=== PATIENT | female | born 1955 | race Caucasian/White ===

== ENCOUNTER → 2021-03-25 | Outpatient (CLI) | payer MEDICARE, OTHER ==
[~2021-03-25] MED LIST: ASP81CT PO; HCT25T PO; LVT.1T PO; MTF500T PO; POTA10CA43 PO; QNPR20T PO
== END ==
LOC: RAD 15:30
PROVIDERS: ATTEND Obstetrics & Gynecology
DX: Z12.31 Encounter for screening mammogram for malignant neoplasm of breast (principal)
CPT/HCPCS: 77063; 77067

== ENCOUNTER 2022-06-29 08:03 | Emergency (ER) | payer MEDICARE, OTHER ==
[~2022-06-29] VITALS: Ht 154.9 cm; Wt 87.9 kg
[2022-06-29 08:25] LABS: BASOPHILS # (AUTO) 0.1 10^3/uL (0.0-0.1); BASOPHILS % (AUTO) 1 % (0-10); EOSINOPHILS # (AUTO) 0.3 10^3/uL (0.0-0.3); EOSINOPHILS % (AUTO) 3 % (0-10); HEMATOCRIT 43 % (35-52); HEMOGLOBIN 14.7 g/dL (11.5-16.0); LYMPHOCYTES # (AUTO) 3.8 10^3/uL (1.0-4.0); LYMPHOCYTES % (AUTO) 40 % (12-44); MEAN CORPUSCULAR HEMOGLOBIN 29 pg (25-34); MEAN CORPUSCULAR HGB CONC 34 g/dL (32-36); MEAN CORPUSCULAR VOLUME 85 fL (80-99); MEAN PLATELET VOLUME 10.3 fL (9.0-12.2); MONOCYTES # (AUTO) 0.6 10^3/uL (0.0-1.0); MONOCYTES % (AUTO) 7 % (0-12); NEUTROPHILS # (AUTO) 4.8 10^3/uL (1.8-7.8); NEUTROPHILS % (AUTO) 49 % (42-75); PLATELET COUNT 243 10^3/uL (130-400); WHITE BLOOD COUNT 9.7 10^3/uL (4.3-11.0)
[2022-06-29 08:38] LABS: ALBUMIN 4.2 GM/DL (3.2-4.5); POTASSIUM 3.4 MMOL/L (3.6-5.0)
[2022-06-29 08:39] LABS: CALCIUM 9.7 MG/DL (8.5-10.1)
[2022-06-29 08:40] LABS: TOTAL PROTEIN 7.6 GM/DL (6.4-8.2)
[2022-06-29 08:42] LABS: BILIRUBIN,TOTAL 0.8 MG/DL (0.1-1.0); PROTHROMBIN TIME PATIENT 13.6 SEC (12.2-14.7)
[2022-06-29 08:44] LABS: CREATININE SERUM 0.76 MG/DL (0.60-1.30)
[2022-06-29 08:47] LABS: MAGNESIUM 1.9 MG/DL (1.6-2.4)
--- NOTE | 2022-06-29 09:08 | ED Cardiac General ---
History of Present Illness General Chief Complaint: Chest Pain Stated Complaint: UPPER BACK PAIN - DIZZY - NAUSEA Nursing Triage Note: arrives this am with a c/o dizziness, nausea, SOB and cold sweats that happened earlier this am around 0700. states she has a hx of mi and had no sx of it at the time it was happening. 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 denies any chest pain or pressure at this time. Source: patient Exam Limitations: no limitations (MARLENE WILKINS) History of Present Illness Date Seen by Provider: Jun 29, 2022 Time Seen by Provider: 08:15 Initial Comments This is a 66 y/o female who presents with reported dizziness and SOA. Patient states onset of symptoms was at 0630 this morning. Patient states she sat up in bed and felt dizzy, hot, clammy, short of breath, and nauseous. Patient states she felt like she was going to pass out but reports that she did not. Patient denies chest pain, vomiting, diarrhea, weakness, or fever. Patient reports associated symptoms of head ache, congestion, and cough. Patient states she has had cough and congestion for about a week. Patient has a PMHx of reported silent [place], Timing/Duration: 1-3 hours, other Severity: mild Activities at Onset: rest Prior CP/Workup: other (2 years ago patient reports a cardiac work up with EKG and stress test) Associated Systoms: Cough, Headaches, Nausea/Vomiting, Shortness of Air, Other (chills, presyncope) (MARLENE WILKINS) Allergies and Home Medications Allergies Coded Allergies: sulfamethoxazole (Unverified Allergy, Mild, 06/29/22) trimethoprim (Unverified Allergy, Mild, 06/29/22) Patient Home Medication List Home Medication List Reviewed: Yes (MARLENE WILKINS) Aspirin (Aspirin 81 Mg Chew Tab) 81 Mg Chew, 81 MG PO DAILY, (Reported) Entered as Reported by: NAOMIE ORR on 08/14/11 1235 Hydrochlorothiazide (Hydrochlorothiazide) 25 Mg Tablet, 1 EACH PO DAILY, (Reported) Entered as Reported by: NAOMIE ORR on 08/14/11 1233 Levothyroxine Sodium (Synthroid) 100 Mcg Tablet, 1 EACH PO DAILY, (Reported) Entered as Reported by: NAOMIE ORR on 08/14/11 1234 Metformin Hcl (Metformin 500 Mg) 500 Mg Tablet, 1 EACH PO BID, (Reported) Entered as Reported by: NAOMIE ORR on 08/14/11 1233 Potassium Chloride (Potassium Chloride 10 Meq Cap) 10 Meq Capsule.sa, 1 EACH PO BID, (Reported) Entered as Reported by: NAOMIE ORR on 08/14/11 1234 Quinapril Hcl (Accupril) 20 Mg Tab, 20 MG PO DAILY, (Reported) Entered as Reported by: NAOMIE ORR on 08/14/11 1232 Review of Systems Review of Systems Constitutional: chills, dizziness EENTM: Nose Congestion Respiratory: Cough, Shortness of Air Cardiovascular: No Symptoms Reported; Denies Chest Pain, Denies Edema, Denies Syncope Gastrointestinal: Nausea Genitourinary: No Symptoms Reported Musculoskeletal: no symptoms reported Skin: no symptoms reported Psychiatric/Neurological: Headache Endocrine: No Symptoms Reported Hematologic/Lymphatic: No Symptoms Reported (MARLENE WILKINS) Past Ehctrna-Yffkjy-Bwcumq Hx Patient Social History Tobacco Use?: No Use of E-Cig and/or Vaping dev: No Substance use?: No Alcohol Use?: No Pt feels they are or have been: No (MARLENE WILKINS) Immunizations Up To Date Influenza Vaccine Up-to-Date: Yes; Up-to-Date First/Initial COVID19 Vaccinat: 2020 j&j (MARLENE WILKINS) Past Medical History Surgery/Hospitalization HX: NIDDM, "[place]" Reproductive Disorders: No (MARLENE WILKINS) Physical Exam Vital Signs Vital Signs - First Documented 06/29/22 08:15 Temp 37.0 Pulse 50 Resp 16 B/P (MAP) 207/101 (136) Pulse Ox 97 (XIANG FLORES MD) Vital Signs Capillary Refill : Less Than 3 Seconds (MARLENE WILKINS) Height, Weight, BMI Height: '" Weight: lbs. oz. kg; 36.00 BMI Method: General Appearance: No Apparent Distress, WD/WN HEENT: PERRL/EOMI, TMs Normal (scarring present on bilateral TMs), Pharynx Normal Respiratory: Lungs Clear, Normal Breath Sounds, No Accessory Muscle Use, No Respiratory Distress Cardiovascular: Regular Rate, Rhythm, No Murmur Gastrointestinal: Normal Bowel Sounds, Non Tender, Soft Neurologic/Psychiatric: Alert, Oriented x3 Skin: Normal Color, Warm/Dry Lymphatic: No Adenopathy Other comments This exam was performed by Dr. Flores and me. Dr. Flores's exam was dictated to me. (MARLENE WILKINS) HEENT: Other (Posterior pharynx somewhat hyperemic) Neck: Normal Inspection; No JVD Extremity: Non Tender, No Calf Tenderness, No Pedal Edema (XIANG FLORES MD) Progress/Results/Core Measures Results/Orders Lab Results Laboratory Tests Test 06/29/22 08:15 06/29/22 08:40 Range/Units White Blood Count 9.7 4.3-11.0 10^3/uL Red Blood Count 5.04 3.80-5.11 10^6/uL Hemoglobin 14.7 11.5-16.0 g/dL Hematocrit 43 35-52 % Mean Corpuscular Volume 85 80-99 fL Mean Corpuscular Hemoglobin 29 25-34 pg Mean Corpuscular Hemoglobin Concent 34 32-36 g/dL Red Cell Distribution Width 12.6 10.0-14.5 % Platelet Count 243 130-400 10^3/uL Mean Platelet Volume 10.3 9.0-12.2 fL Immature Granulocyte % (Auto) 1 % Neutrophils (%) (Auto) 49 42-75 % Lymphocytes (%) (Auto) 40 12-44 % Monocytes (%) (Auto) 7 0-12 % Eosinophils (%) (Auto) 3 0-10 % Basophils (%) (Auto) 1 0-10 % Neutrophils # (Auto) 4.8 1.8-7.8 10^3/uL Lymphocytes # (Auto) 3.8 1.0-4.0 10^3/uL Monocytes # (Auto) 0.6 0.0-1.0 10^3/uL Eosinophils # (Auto) 0.3 0.0-0.3 10^3/uL Basophils # (Auto) 0.1 0.0-0.1 10^3/uL Immature Granulocyte # (Auto) 0.1 0.0-0.1 10^3/uL Prothrombin Time 13.6 12.2-14.7 SEC INR Comment 1.0 0.8-1.4 Activated Partial Thromboplast Time 27 24-35 SEC Sodium Level 141 135-145 MMOL/L Potassium Level 3.4 L 3.6-5.0 MMOL/L Chloride Level 104 98-107 MMOL/L Carbon Dioxide Level 27 21-32 MMOL/L Anion Gap 10 5-14 MMOL/L Blood Urea Nitrogen 17 7-18 MG/DL Creatinine 0.76 0.60-1.30 MG/DL Estimat Glomerular Filtration Rate 85 BUN/Creatinine Ratio 22 Glucose Level 149 H 70-105 MG/DL Calcium Level 9.7 8.5-10.1 MG/DL Corrected Calcium 9.5 8.5-10.1 MG/DL Magnesium Level 1.9 1.6-2.4 MG/DL Total Bilirubin 0.8 0.1-1.0 MG/DL Aspartate Amino Transf (AST/SGOT) 27 5-34 U/L Alanine Aminotransferase (ALT/SGPT) 29 0-55 U/L Alkaline Phosphatase 70 40-136 U/L Myoglobin 63.6 10.0-92.0 NG/ML Troponin I < 0.028 <0.028 NG/ML C-Reactive Protein High Sensitivity 0.40 0.00-0.50 MG/DL B-Type Natriuretic Peptide 59.4 <100.0 PG/ML Total Protein 7.6 6.4-8.2 GM/DL Albumin 4.2 3.2-4.5 GM/DL Thyroid Stimulating Hormone (TSH) 1.98 0.35-4.94 UIU/ML Free Thyroxine 1.03 0.70-1.48 NG/DL Influenza Type A (RT-PCR) Not Detected Not Detecte Influenza Type B (RT-PCR) Not Detected Not Detecte SARS-CoV-2 RNA (RT-PCR) Not Detected Not Detecte Glucometer 141 H 70-110 MG/DL (XIANG FLORES MD) My Orders Orders - XIANG FLORES MD Cbc With Automated Diff (06/29/22 08:07) Magnesium (06/29/22 08:07) Chest 1 View, Ap/Pa Only (06/29/22 08:07) Ekg Tracing (06/29/22 08:07) Comprehensive Metabolic Panel (06/29/22 08:07) Myoglobin Serum (06/29/22 08:07) Protime With Inr (06/29/22 08:07) Partial Thromboplastin Time (06/29/22 08:07) O2 (06/29/22 08:07) Monitor-Rhythm Ecg Trace Only (06/29/22 08:07) Lipid Panel (06/30/22 06:00) Ed Iv/Invasive Line Start (06/29/22 08:07) Troponin I [place] (06/29/22 08:07) Covid 19 Inhouse Test (06/29/22 08:29) Influenza A And B By Pcr (06/29/22 08:29) Bnp [place] (06/29/22 08:48) Hs C Reactive Protein (06/29/22 08:48) Thyroid Stimulating Hormone (06/29/22 08:48) Free T4 (Free Thyroxine) (06/29/22 08:48) (XIANG FLORES MD) Vital Signs/I&O 06/29/22 08:15 Temp 37.0 Pulse 50 Resp 16 B/P (MAP) 207/101 (136) Pulse Ox 97 (XIANG FLORES MD) Blood Pressure Mean: 136 [facility]SB[facility] Bedside Testing Finger Stick Blood Glucose: 141 (MARLENE WILKINS) Progress Progress Note : Time: 09:51 Progress Note Work-up was relatively unremarkable in the emergency room. Patient did exhibit some borderline bradycardia which was sinus in nature. She was advised to follow-up on this with her film laboratory technician as soon as possible. Patient required no acute treatments in the ER. Her symptoms are likely multifactorial with contributing factors including recent COVID vaccination, upper respiratory infection, lower heart rate, etc. See discharge instructions for further discussion. (XIANG FLORES MD) Initial ECG Impression Date: Jun 29, 2022 Initial ECG Impression Time: 08:38 Initial ECG Rate: 59 Initial ECG Rhythm: Normal Sinus Initial ECG Intervals: Normal Initial ECG Impression: Normal Comment Sinus rhythm with no ST elevation or depression. No abnormal intervals or axis deviation. (XIANG FLORES MD) Diagnostic Imaging Diagonstic Imaging: Xray Plain Films/CT/US/NM/MRI: chest Comments Chest x-ray viewed by me and report reviewed. See report below: NAME: [facility] REC#: [id number] PT STATUS: REG ER : 1955 PHYSICIAN: XIANG FLORES MD ADMIT DATE: 06/29/22/ER Signed Date of Exam:06/29/22 CHEST 1 VIEW, AP/PA ONLY EXAMINATION: Chest radiograph, portable AP view. DATE: 06/29/2022 8:58 AM. INDICATION: 66-year-old female, chest pain. COMPARISON: None. FINDINGS: The heart size and mediastinal contours are unchanged. There is no identified pneumothorax. There is no large pleural effusion. There is no identified focal airspace consolidation. IMPRESSION: No identified acute cardiopulmonary abnormality. Dictated by: Dictated on workstation # [id number] Dict: 06/29/22858 Trans: 06/29/22925 [id number] Interpreted by: XAVIER FLORES MD Electronically signed by: XAVIER FLORES MD 06/29/22925 (XIANG FLORES MD) Departure Impression Primary Impression: Upper respiratory infection Qualified Codes: J06.9 - Acute upper respiratory infection, unspecified Additional Impressions: Dyspnea Qualified Codes: R06.00 - Dyspnea, unspecified Dizziness Disposition: 01 HOME, SELF-CARE Condition: Improved Departure-Patient Inst. Decision time for Depature: 09:46 (XIANG FLORES MD) Referrals: NO,LOCAL PHYSICIAN (PCP/Family) Primary Care Physician Patient Instructions: Dizziness, Adult ED, Shortness of Breath (Dyspnea) Add. Discharge Instructions: The exact cause of your symptoms is uncertain at this time, but there may be multiple contributing factors. Possible contributing factors include viral upper respiratory illness, adverse effect from COVID vaccination, lower heart rate, or other medication effects. Your work-up in the emergency room was relatively unremarkable. Your potassium was slightly low. You may benefit from eating and drinking some items higher in potassium over the next few days. Your heart rate was running in the 50s and 60s while in the emergency room. This is on the low end of normal. Please follow-up with your film laboratory technician to discuss your heart rate. Your film laboratory technician may want to proceed with further evaluation and monitoring of your heart rate and rhythm. Also follow-up with your primary care provider soon as possible. Call both your film laboratory technician and your primary care provider on Thursday to arrange follow-up from this ER visit. To help with nasal drainage and postnasal drip, you may use Flonase (fluticasone) 2 sprays in each nostril twice daily for the next couple of weeks. Return to the emergency room if you have worsening symptoms despite following these instructions. All discharge instructions reviewed with patient and/or family. Voiced understanding. Medical Student Attestation and Attending Note: I have personally interviewed and examined this patient along with Elizabeth Wilkins, MS 4. I have reviewed student documentation including history, physical, and assessments. I agree with the documentation except where othe rwise noted. My exam dictated to medical student and recorded above. (XIANG FLORES MD) MARLENE WILKINS Jun 29, 2022 09:08 XIANG FLORES MD Jun 29, 2022 09:51
--- NOTE | 2022-06-29 09:18 | Diagnostic Imaging Report ---
EXAMINATION: Chest radiograph, portable AP view. DATE: 06/29/2022 8:58 AM. INDICATION: 66-year-old female, chest pain. COMPARISON: None. FINDINGS: The heart size and mediastinal contours are unchanged. There is no identified pneumothorax. There is no large pleural effusion. There is no identified focal airspace consolidation. IMPRESSION: No identified acute cardiopulmonary abnormality. Dictated by: Dictated on workstation # [id number]
[2022-06-29 09:29] LABS: FREE T4 (FREE THYROXINE) 1.03 NG/DL (0.70-1.48)
[2022-06-29 10:38] VITALS: BP 175/72
== END 2022-06-29 10:38 | disposition home or self-care (01) ==
LOC: EDUNIT# 08:03 → ER 08:06
DX: J06.9 Acute upper respiratory infection, unspecified (principal); R06.00 Dyspnea, unspecified; R42 Dizziness and giddiness; Z20.822 Contact with and (suspected) exposure to COVID-19
CPT/HCPCS: 36415; 71045; 80053; 82947; 83735; 83874; 83880; 84439; 84443; 84484; 85025; 85610; 85730; 86141; 87636; 93005; 93041